=== PATIENT | male | born 1975 ===

== ENCOUNTER 2024-04-03 11:36 | Emergency (ER) | payer OTHER, SELFPAY ==
[2024-04-03 12:04] VITALS: BP 135/75; PULSE 90; RESP 17; TEMP 36.7; O2SAT 95; BMI 36.1
[2024-04-03 13:57] VITALS: PULSE 97; O2SAT 98
[2024-04-03 13:58] VITALS: BP 172/94; PULSE 99; O2SAT 97
[2024-04-03 14:00] VITALS: PULSE 97; O2SAT 96
--- NOTE | 2024-04-03 14:06 | ED_ITS ---
HPI - Recheck/Abnormal Lab/Rx General Chief Complaint: Recheck/Abnormal Lab/Rx Stated Complaint: spitting out blood, post op problems Time Seen by Provider: 04/03/24 13:32 Source: patient Mode of arrival: Family Vehicle History of Present Illness HPI narrative: Patient is a 49-year-old male. Is 3 days status post tonsillectomy and nasal surgery done by ENT. He states that this morning he had an episode where he tried to take his medicines. He then coughed and coughed up quite a bit of blood. He has not in any discomfort. It has now been approximately 3 hours since the event and he has not had any persistent bleeding. He was told that if he had any bleeding that he needed to come to the emergency department to be evaluated. Review of Systems Constitutional Constitutional: Reports system reviewed and no additional complaints, except as documented ENT Ears, Nose, Mouth, and Throat: Reports system reviewed and no additional complaints, except as documented Hematologic/Lymphatic On Anticoagulants: No Patient History Social History Smoking Status: Never smoker Smoking Status: Never smoker alcohol intake frequency: 0-2 drinks per day Substance Use Type: does not use Exam Initial Vital Signs Initial Vital Signs: Vital Signs Temperature 98.1 F 04/03/24 12:04 Pulse Rate 90 04/03/24 12:04 Respiratory Rate 17 04/03/24 12:04 Blood Pressure 135/75 04/03/24 12:04 Pulse Oximetry 95 04/03/24 12:04 Oxygen Delivery Method Room Air 04/03/24 12:04 Const General: cooperative and comfortable HENMT Nose: No epistaxis Throat: other (Bilateral eschar) Resp Effort & Inspection: normal respiratory effort Skin General: no rashes or lesions noted Neuro General: patient alert, patient awake and moves all extremities Course Vital Signs Vital signs: Vital Signs - 8 hr 04/03/24 12:04 Temperature 98.1 F Pulse Rate 90 Respiratory Rate 17 Blood Pressure 135/75 Pulse Oximetry 95 Oxygen Delivery Method Room Air MDM - Recheck/Abnormal Lab/Rx MDM Narrative Medical decision making narrative: Patient has no active bleeding here in the ER. The tonsillectomy eschars appear well. I discussed the case with Dr. Saucedo who was the operative surgeon who stated that as long as he has not actively bleeding there was no emergent intervention needed. I did discuss this with the patient. We discussed return precautions and follow-up instructions. He expressed understanding and agreement. Discharge Plan Departure Patient Disposition: Home Clinical Impression: Post-operative hemorrhage Activity Restrictions/Additional Instructions: I did discuss your case with Dr. Saucedo who stated that you can continue with the normal postoperative course. If you start to bleed again you do need to re turn to the emergency department for further evaluation. Stand Alone Forms: Patient Portal/API
[2024-04-03 14:30] VITALS: PULSE 84; O2SAT 96
== END 2024-04-03 15:05 | disposition home or self-care (01) ==
PROVIDERS: Emergency Provider Emergency Medicine
DX: J95.830 Postprocedural hemorrhage of a respiratory system organ or structure following a respiratory system procedure (principal)
CPT/HCPCS: 99281; 99282